=== PATIENT | female | born 1980 | race Caucasian/White ===

== ENCOUNTER → 2018-06-29 | Outpatient (CLI) | payer OTHER ==
[~2018-06-29] MED LIST: IOPAMIDOL (ISOVUE-300) 100 ML BTL ONE
== END ==
LOC: CIMAGING 09:25
PROVIDERS: ATTEND Internal Medicine
DX: N20.0 Calculus of kidney (principal); K86.89 Other specified diseases of pancreas
CPT/HCPCS: 74177-PO; Q9967